=== PATIENT | female | born 1990 | race Caucasian/White ===

== ENCOUNTER 2021-02-20 14:22 | Inpatient (IN) ==
[2021-02-20] MEDS ORDERED: RINGER'S SOLUTION,LACTATED 1,000 ML IV ONE (18:23)
[2021-02-20] MEDS ORDERED: ONDANSETRON 4 MG TAB.RAPDIS PO PRN (18:23)
[2021-02-20] MEDS ORDERED: MISOPROSTOL 100 MCG TABLET VG PRN (18:23)
[2021-02-20] MEDS ORDERED: OXYTOCIN/0.9 % SODIUM CHLORIDE 30 UNITS/500 ML BAG IV ONE (18:23)
[2021-02-20] MEDS ORDERED: BUTORPHANOL TARTRATE 2 MG/ML VIAL IV PRN ×2 (18:23)
[2021-02-20] MEDS ORDERED: LIDOCAINE HCL 50 ML VIAL PERI PRN (18:23)
[2021-02-21] MEDS: RINGER'S SOLUTION,LACTATED 1,000 ML IV PRN ×3 (04:50→16:28)
--- NOTE | 2021-02-21 08:16 | HP ---
Chief Complaint - Chief Complaint Date of Service: 02/21/21 Time of Service: 08:10 Chief Complaint: Labor induction History of Present Illness: 30 year old at 40w 5d who presented to L&D for a medical IOL due to post due date. She reports regular ctx. She denies vb or lof. Fetus is active. Medical History (Last Reviewed 02/21/21 @ 08:11 by Gisselle Phan MD) UTI (urinary tract infection) Onset Date: Unknown Surgical History: Surgical History (Last Reviewed 02/21/21 @ 08:11 by Gisselle Phan MD) [place] teeth extracted Family History: Family History (Last Reviewed 02/21/21 @ 08:11 by Gisselle Phan MD) Mother Alive and well Father Alive and well Social History: (Last Reviewed 02/21/21 @ 08:11 by Gisselle Phan MD) Social History: adopted: No Marital status: household members: significant other number of children: 3 current occupational status: unemployed Highest level of school completed/degree received: high school graduate Sexually Active: Yes Service: No Tobacco: Smoking Status: Former smoker tobacco type: cigarettes Smoking cigarettes per day: 10 Alcohol: alcohol intake: never Substance Use: substance use type: former substance user Dietary Habits: caffeine: Yes caffeine comment: occasonal Type: carbonated beverages Exercise: Physical activity type: none Review Of Systems (GEN) - Review of Systems Generalized/Overall Review: Present: No Symptoms Reported Misc: All systems neg except as marked Immunizations: IMMUNIZATION HX Immunizations Up to Date Yes Allergies/Adverse Reactions: Allergies Allergy/AdvReac Type Severity Reaction Status Date / Time No Known Allergies Allergy Verified 02/20/21 18:23 Home Medications: HOME MEDICATIONS prenat.vits,wolfgang,[id number] 1 tab PO HS 08/05/20 [Last Taken Unknown] famotidine 20 mg tablet 20 mg PO HS PRN 01/26/21 [Last Taken Unknown] Exam - Exam Vital Signs: Vital Signs - Last Taken Temp 36.4 C 02/20/21 19:20 Pulse 96 02/20/21 19:20 Resp 16 02/20/21 19:20 BP 120/68 02/20/21 19:20 Pulse Ox 97 02/20/21 19:20 Constitutional: Present: Alert, Oriented x3, Cooperative, No distress ENT Exam: Present: hearing grossly normal Eye Exam: bilateral eye: normal inspection Neck: Present: normal inspection Breasts: Present: Exam deferred Respiratory: Present: lungs clear, normal breath sounds, no respiratory distress Cardiovascular/Chest: Present: regular rate, rhythm Abdomen: Present: soft, nontender, nondistended /Rectal: Present: Other - 360/-3 AROM for a large amount of clear fluid Extremity: Present: non-tender, no calf tenderness Skin Exam: Present: normal color, warm/dry, no cyanosis Neurologic: Present: alert, normal mood/affect, oriented x 3 Appearance: Present: appropriate appearance, appropriate insight, neat, no memory impairment Eye contact: Present: cooperative, good eye contact, normal speech Thoughts: Present: normal thought pattern Diagnostic Studies: Laboratory Results Blood Type O Positive 02/20/21 18:30 Antibody Screen Negative 02/20/21 18:30 Assessment/Plan - Narrative Narrative: 30 year old at 40w 5d 1. Medical IOL: on pitocin, AROM for augmentation of labor 2. History of THC use: check UDS 3. GBS negative: prophylaxis not indicated - Assessment/Plan (1) Encounter for induction of labor Problem: Acute (2) 40 weeks gestation of Problem: Acute (3) History of marijuana use Problem: Acute
[2021-02-21 11:25] LABS: Cocaine Ur Negative (NEGATIVE); Urine Barbiturate Negative (NEGATIVE); Urine Benzodiazepines Negative (NEGATIVE); Urine Opiates Negative (NEGATIVE); Urine PCP Negative (NEGATIVE)
[2021-02-21 11:37] LABS: Urine THC Negative (NEGATIVE)
[2021-02-21] MEDS ORDERED: BUPIVACAINE HCL/0.9 % NACL/PF 250 ML EP PRN (15:46)
[2021-02-21] MEDS ORDERED: ONDANSETRON HCL/PF 2 MG/ML VIAL IV PRN (15:46)
[2021-02-21] MEDS ORDERED: NALOXONE HCL 1 MG/1 ML SYRG IV PRN (15:46)
[2021-02-21] MEDS ORDERED: fentaNYL CITRATE/PF 50 MCG/ML AMPUL IT SCH (16:00)
--- NOTE | 2021-02-21 16:50 | ANES ---
Post Anesthesia Assessment - Vital Signs Vitals: Last Vital Signs Temp 36.4 C 02/20/21 19:20 Pulse 96 02/20/21 19:20 Resp 16 02/20/21 19:20 BP 120/68 02/20/21 19:20 Pulse Ox 97 02/20/21 19:20 Airway Patency: Normal - Mental Status Level Of Consciousness: Awake - Pain Level Pain Score: 2 - N/V Assessment Nausea/Vomiting Presence: None Dehydration:: No
--- NOTE | 2021-02-21 16:50 | ANES ---
Anesthesia Pre Procedure Eval Vitals/Labs: Last Vital Signs Temp 36.4 C 02/20/21 19:20 Pulse 96 02/20/21 19:20 Resp 16 02/20/21 19:20 BP 120/68 02/20/21 19:20 Pulse Ox 97 02/20/21 19:20 HOME MEDICATIONS prenat.vits,wolfgang,[id number] 1 tab PO HS 08/05/20 [Last Taken Unknown] famotidine 20 mg tablet 20 mg PO HS PRN 01/26/21 [Last Taken Unknown] Allergies/Adverse Reactions: Allergies Allergy/AdvReac Type Severity Reaction Status Date / Time No Known Allergies Allergy Verified 02/20/21 18:23 - Planned Procedure Planned Procedure: medical induction 40 + 4 for post dates Medication List Reviewed:: Yes Allergies Verified: Yes Medical History (Last Reviewed 02/21/21 @ 16:49 by Niels Yepez CRNA) UTI (urinary tract infection) Onset Date: Unknown Surgical History (Last Reviewed 02/21/21 @ 16:49 by Niels Yepez CRNA) [place] teeth extracted Family History (Last Reviewed 02/21/21 @ 16:49 by Neils Yepez CRNA) Mother Alive and well Father Alive and well - Family Anesthesia History Family History:: no untoward family reactions to anesthesia - Airway/Neck/Teeth Neck Exam: full range of motion Mallampatti Score: 2 Thyromental (T-M) distance: > 6 cm Mandibulo Hyoid distance: > 3 cm - Respiratory Respiratory Physical: lungs clear Smoking Status: Former smoker Sleep Apnea currently treated: No Sleep Apnea by current assessment: No - Cardiovascular Tolerate Activity: Good Heart Sounds: S1 & S2, Regular - Gastrointestinal NPO since: 1200 - Anesthesia Assessment and Plan ASA Class: PS, II, E Anesthesia Type Plan: Epidural Planned difficult intubation/equipment available: No
--- NOTE | 2021-02-21 16:50 | ANES ---
Post Anesthesia Discharge - Transfer of Care Transfer of Care handoff given to nurse: Yes - Anesthesia Post Op Note Anesthesia Post Op Note: Care transferred to OB RN
--- NOTE | 2021-02-21 16:51 | ANES ---
Anesthesia Procedure Note Procedure Note: ANESTHESIA PROCEDURE NOTE Date of Procedure: 02/21/2021 Time of procedure: 1630. Performed by: Hayder Yepez CRNA Director Of Strategic Initiatives: None. Preprocedure diagnosis: Active labor. Post procedure diagnosis: Same. Procedure: Insertion of labor epidural. Indications: The patient is a 30-year-old multigravida female in active labor requesting labor epidural for pain management. Findings: See below. Details of the procedure: The patient was placed in a sitting position. Back was prepped with DuraPrep. Patient was then draped in a sterile fashion. Lidocaine 1% was infiltrated to the skin and subcutaneous tissues at the level of the L3 4 interspace. The epidural space was identified using a 18-gauge Tuohy needle with [id number] technique. 20 mcg fentanyl was given intrathecally using a 27 ga. spinal needle. Epidural catheter was inserted without difficulty. Negative test dose was elicited using 5 mL of 1.5% preservative-free lidocaine plus epinephrine 1 200,000. The epidural catheter was then taped and secured in place. EBL: Minimal. Fluids: N/A. Specimen: N/A. Post procedure condition: The patient tolerated the procedure well. No complications were noted. Thank you for this consultation. Burger CRNA
--- NOTE | 2021-02-21 23:53 | OR ---
Operative Report - Dictated Report Narrative: Date of delivery: 02/21/2021 Time of delivery: 2340 Gender: female weight: 3909 grams APGARS: 07/14 Procedure: Description of the procedure: The patient is a 30 year old at 40w 5d who underwent a medical IOL due to post due date. She progressed to complete dilation. She delivered a viable female in DELONTE presentation. The shoulders delivered without any difficulty followed by the rest of the infant. Cord clamping was delayed for 60 seconds due to vigorous infant. Cord blood was collected. The placenta delivered by expression and appeared intact. There were no lacerations. EBL: 100 mL Complications: none Specimens: cord blood History for Definition: * The number of deliveries resulting in a live the patient experienced prior to current hospitalization * The previous delivery of live twins or any live multiple gestation is considered one live event. *If primagravida or nulliparous is documented select zero for the number of previous live births. Live Events: 3
[2021-02-22] MEDS ORDERED: BENZOCAINE/MENTHOL 81 SPRAY CAN TP PRN (00:32)
[2021-02-22] MEDS ORDERED: GLYCERIN/WITCH HAZEL LEAF 40 APPL BOX TP PRN (00:32)
[2021-02-22] MEDS ORDERED: BISACODYL 10 MG SUPP.RECT RC PRN (00:32)
[2021-02-22] MEDS ORDERED: OXYTOCIN/0.9 % SODIUM CHLORIDE 30 UNITS/500 ML BAG IV ONE (00:32)
[2021-02-22] MEDS ORDERED: diphenhydrAMINE HCL 25 MG CAPSULE PO PRN (00:32)
[2021-02-22] MEDS ORDERED: SENNOSIDES 8.6 MG TABLET PO PRN (00:32)
[2021-02-22] MEDS ORDERED: HYDROCORTISONE 30 APPL TUBE TP PRN (00:32)
[2021-02-22] MEDS: IBUPROFEN 800 MG TABLET PO PRN ×3 (07:31→20:20)
--- NOTE | 2021-02-22 08:13 | PN ---
Subjective - Date and Time Seen Date: 02/22/21 Time: 08:11 Subjective Narrative: Patient without complaints Objective Objective Narrative: See vital signs - Review of Systems Generalized/Overall Review: Reports: No Symptoms Reported Genitourinary Symptoms: Reports: Other - vaginal bleeding is normal Misc: All systems neg except as marked - Vitals Vitals: Last Vital Signs Temp 37.1 C 02/22/21 07:33 Pulse 96 02/22/21 07:33 Resp 18 02/22/21 07:33 BP 112/73 02/22/21 07:33 Pulse Ox 99 02/22/21 07:33 - Exam Constitutional: Present: Alert, Oriented x3, Cooperative, No distress ENT Exam: Present: hearing grossly normal Abdomen: Present: soft, nontender, nondistended - fundus is firm Extremity: Present: non-tender, no calf tenderness Skin Exam: Present: normal color, warm/dry, no cyanosis Neurologic: Present: alert, normal mood/affect, oriented x 3 Appearance: Present: appropriate appearance, appropriate insight, neat, no memory impairment Eye contact: Present: cooperative, good eye contact, normal speech Thoughts: Present: normal thought pattern Cauti Physician Documentation - Urinary Catheter Management Urethral (Najera) Urethral Indwelling: No Date of Insertion: 02/21/21 Time of Insertion: 17:30 Date of Removal: 02/21/21 Time of Removal: 23:21 Assessment/Plan Plan Narrative: PPD 1 s/p Doing well Discharge tomorrow - Problems/Diagnosis (1) Encounter for induction of labor Problem: Acute (2) 40 weeks gestation of Problem: Acute (3) History of marijuana use Problem: Acute
[2021-02-22] MEDS: DOCUSATE SODIUM 100 MG CAPSULE PO SCH ×2 (09:19→20:20)
[2021-02-22] MEDS: HYDROcodone/ACETAMINOPHEN 1 EACH TABLET PO PRN ×3 (09:19→20:20)
[2021-02-22] MEDS ORDERED: PRENATAL VITS96/IRON FUM/FOLIC 1 TAB TABLET PO SCH (21:00)
--- NOTE | 2021-02-23 07:42 | PN ---
Subjective - Date and Time Seen Date: 02/23/21 Time: 07:41 Subjective Narrative: Patient without complaints Objective Objective Narrative: See vital signs - Review of Systems Generalized/Overall Review: Reports: No Symptoms Reported Misc: All systems neg except as marked - Vitals Vitals: Last Vital Signs Temp 36.3 C 02/23/21 00:32 Pulse 76 02/23/21 00:32 Resp 18 02/23/21 00:32 BP 107/66 02/23/21 00:32 Pulse Ox 99 02/23/21 00:32 - Exam Constitutional: Present: Alert, Oriented x3, Cooperative, No distress ENT Exam: Present: hearing grossly normal Abdomen: Present: soft, nontender, nondistended - fundus is firm Extremity: Present: non-tender, no calf tenderness Skin Exam: Present: normal color, warm/dry, no cyanosis Neurologic: Present: alert, normal mood/affect, oriented x 3 Appearance: Present: appropriate appearance, appropriate insight, neat, no memory impairment Eye contact: Present: cooperative, good eye contact, normal speech Thoughts: Present: normal thought pattern Cauti Physician Documentation - Urinary Catheter Management Urethral (Najera) Urethral Indwelling: No Date of Insertion: 02/21/21 Time of Insertion: 17:30 Date of Removal: 02/21/21 Time of Removal: 23:21 Assessment/Plan Plan Narrative: PPD 2 s/p Doing well Discharge today - Problems/Diagnosis (1) Encounter for induction of labor Problem: Acute (2) 40 weeks gestation of Problem: Acute (3) History of marijuana use Problem: Acute
--- NOTE | 2021-02-23 07:44 | DS ---
OB Discharge Summary (1) Encounter for induction of labor Status: Acute (2) 40 weeks gestation of Status: Acute (3) History of marijuana use Status: Acute Delivery Date: 02/21/21 Delivery Time: 23:41 :: 4 Para:: 4 Gestational weeks:: 40 Gestational days:: 5 Intrapartum Procedures: Spontaneous Vaginal Delivery, Anesthesia - Epidural Procedures: None /OP Complications: No Complications Discharge Diagnosis: Term -Delivered - Discharge Information Date of Discharge: 02/23/21 Hospital Course: The patient presented for a medical IOL due to post due date. She had an uncomplicated vaginal delivery and an uncomplicated course. Discharge Location: Home Disposition: Home self-care Condition: Good Activity on Discharge:: Activity as tolerated, Pelvic Rest Discharge Diet: General/regular food Additional Patient Instructions (free text): Your follow up appt with Dr Phan is Leslie's follow up appt is on Her Weight Today is 8 pounds 4.3 ounces. Her Bilirubin is 4.1 at 29 hours of age. Her Blood Type is O- Feed her on demand or at least every 2-[address] her on her back in her own crib or bassinet for sleep. No pillows, blankets, stuffed animals, or bumper pads in her sleep space. Please call with any questions or concerns. [facility] [phone], [facility] [phone], [facility] [phone]. Complete Home Medications List: Complete Home Medication List: prenat.vits,wolfgang,[id number] 1 tab PO HS 08/05/20 - Plan Discharge to:: Home Comment:: Routine Discharge Instructions Follow up in office in:: 6 weeks - [place] Information Weight (Grams): 3,909 Infant Sex: Female Score 1 min: 9 Score 5 min: 9 Infant Complications: None Other Complications: LGA
[2021-02-23] MEDS: IBUPROFEN 800 MG TABLET PO PRN ×2 (07:54→14:57)
[2021-02-23] MEDS: HYDROcodone/ACETAMINOPHEN 1 EACH TABLET PO PRN ×2 (07:54→14:57)
[2021-02-23] MEDS: DOCUSATE SODIUM 100 MG CAPSULE PO SCH ×2 (07:54→08:48)
[2021-02-23 14:27] VITALS: BP 126/69
== END 2021-02-23 16:40 | disposition home or self-care (01) | DRG 806 ==
LOC: OB 18:15
PROVIDERS: ADMIT Obstetrics & Gynecology; ATTEND Obstetrics & Gynecology